=== PATIENT | female | born 2000 ===

== ENCOUNTER 2023-01-31 08:52 | Outpatient (AMB) | payer BC, SELFPAY ==
--- NOTE | 2023-01-31 08:54 | A.OFFPC_ITS ---
Vital Signs 01/31/23 08:55 Height 5 ft 4 in Weight 213 lb BMI 36.6 BP 100/72 Blood Pressure Location Lt brachial Position Sitting Pulse 105 H Pulse Source Pulse Oximeter Pulse Oximetry (%) 97 Oxygen Delivery Method Room Air Intake Visit Reasons: New Patient-ADD Retread Mold Operator Required: No Accompanied by: Self / Same As Patient Allergies venom-wasp Allergy (Severe, Verified 01/31/23 09:09) Anaphylaxis Medication List - Last Reconciled 01/31/23 by TALHA Montez albuterol sulfate 90 mcg/actuation 2 puffs inhalation Q6H PRN dextroamphetamine-amphetamine 20 mg 20 mg PO DAILY 30 days epinephrine 0.3 mg IM Q4H PRN montelukast 10 mg PO DAILY Tobacco use date assessed: 01/31/23 Dental Screening Dental Screen Date: 01/31/23 Did you have a dental visit in the last 12 months?: Yes Did you have a dental problem in the last 6 months where you did not have access to dental care?: No Was dental information given to patient?: Patient has dentist HPI HPI Comments History of Present Illness Details 22-year-old female new patient presents today to establish care. Past medical history significant for mild intermittent asthma and ADHD. Dr. Salazar was prescribing. Patient currently attending college at [employer] [facility] Patient has positive anay-7 been showing mild anxiety, offered referral to counseling patient declined at this time states she can see counselor school if needed. Patient also reports that she has a lump in her right axilla, tender times, no erythema noted patient states this has been coming corn going for years. Patient currently on doxycycline for labial abscess. No antibiotics prescribed this time. Patient also believes she is due for another vaccination but she is unsure her initially thought it was for hepatitis-B but she has had all 3 hep B vaccines. One dose of the meningococcal B given in 2019. However patient is unsure which vaccine she had done mother was the Bexsero or Trumenba. PAtient to clarify this and notify office to see if she required 1 or 2 more doses of the Men B vaccine. Previous pt Dr. Salazar. Pap smear: cervical cancer screening [facility] Medical History ADHD (attention deficit hyperactivity disorder), inattentive type Mild intermittent asthma Surgical History No pertinent past surgical history Family History Mother No problems noted. Father No problems noted. Social History Household Members: Family Both parents involved: Yes Housing: Apartment Alcohol intake: never Patient Tobacco Use Status: Never used Tobacco e-Cigarette/Vaping Use: Never Used service: No Current occupational status: employed Current occupational exposures/hazards: No Cognitive needs: No Hearing needs: No Vision needs: No Questionnaire PHQ-9 Over the last 2 weeks, how often have you been bothered by any of the following problems? 1. Little interest or pleasure in doing things: not at all 2. Feeling down, depressed, or hopeless: not at all 3. Trouble falling or staying asleep, or sleeping too much: not at all 4. Feeling tired or having little energy: not at all 5. Poor appetite or overeating: not at all 6. Feeling bad about yourself - or that you are a failure or have let yourself or your family down: not at all 7. Trouble concentrating on things, such as reading the newspaper or watching television: not at all 8. Moving or speaking so slowly that other people could have noticed. Or the op posite - being so fidgety or restless that you have been moving around a lot more than usual: not at all 9. Thoughts that you would be better off or of hurting yourself in some way: not at all Total score: 0 Depression Screening Interpretation: Negative 86274 - PHQ-9 Billing: Yes Source: Developed by Drs. Edmund Isaacs, Rhonda Melendez, Milan Gongora and colleagues, with an educational alma from [employer]. Thrive Questionnaire Date Thrive assessed: 01/31/23 I am a: Patient What is your living situation today?: I have a steady place to live Within the past 12 months, did the food you bought not last and you didn't have the money to get more?: Never true Within the past 12 months, did you worry whether your food would run out before you got money to buy more?: Never true Do you have trouble paying for medicines?: No Do you have trouble getting transportation to medical appointments?: No Do you have trouble paying your heating and electricity bill?: No Do you have trouble taking care of your child, family member or friend?: No Do you have trouble with day-to-day activities such as bathing, preparing meals, shopping, managing finances, etc.?: No Are you currently unemployed and looking for a job?: No Are you interested in more education?: No Please select the resources that you would like help with: None Currently or been in a relationship where the following occur: no concerns reported AUDIT C Alcohol Use Questionnaire (AUDIT-C) 1. How often do you have a drink containing alcohol?: Never 3. How often do you have six or more drinks on one occasion?: Never Total Score: 0 ANAY-7 AMB Questionnaire ANAY-7 Date ANAY - 7 assessed: 01/31/23 Feeling nervous, anxious, or on edge: 1 = Several days Not being able to stop or control worryin = Several days Worrying too much about different things: 1 = Several days Trouble relaxin = Not at all Being so restless that it is hard to sit still: 1 = Several days Becoming easily annoyed or irritable: 1 = Several days Feeling afraid as if something awful might happen: 0 = Not at all Total ANAY-7 score (0-4 normal; 5-9 mild; 10-14 moderate; 15-21 severe): 5 Source: Developed by Drs. Edmund Isaacs, Rhonda Melendez, Milan Gongora and colleagues, with an educational alma from [employer]. ANAY-7 Assessment Billing ANAY-7 Assessment Tool: ANAY-7 Assessment 59997 Review of Systems Const Denies chills, Denies fatigue, Denies fever(s) and Denies poor appetite Eyes Denies no additional complaints ENT Reports Normal hearing present Card Denies chest pain, Denies syncope, Denies rapid heart rate and Denies dyspnea Resp Denies cough and Denies dyspnea GI Denies change in stool character, Denies constipation, Denies diarrhea, Denies nausea and Denies vomiting Denies urinary frequency, Denies dysuria and Denies urinary urgency Skin/Breast Reports other (lumo in right armpit ) Neuro Reports Normal hearing present, Denies confusion and Denies syncope Psych Denies confusion Endo Denies fatigue Physical exam (Primary Care) Vital Signs: Last Vital Signs Pulse 105 H 01/31/23 08:55 BP 100/72 01/31/23 08:55 Pulse Ox 97 01/31/23 08:55 Oxygen Delivery Method Room Air 01/31/23 08:55 BMI result Body Mass Index 36.6 Tobacco/Smoking Status: Tobacco use Status Tobacco use date assessed 01/31/23 01/31/23 09:01 Patient Tobacco Use Status Never used Tobacco 01/31/23 09:01 e-Cigarette/Vaping Use Never Used 01/31/23 09:01 PHQ-9: PHQ-9 Score PHQ-9: Total score 0 01/31/23 09:12 Depression Screening Interpretation: Negative Thrive Assessment: Date of Thrive Assessment Date Thrive assessed 01/31/23 01/31/23 09:01 Currently or been in a relationship where the following occur: no concerns reported Const General: No confusion Orientation/consciousness: No confusion HENMT Head: Yes normocephalic and Yes atraumatic Ears: external ears normal and TM's normal bilaterally General nose exam: Normal external nose present and Normal nasal mucous membrane s and turbinates present Face and sinus: Yes normal facial exam and Yes sinuses nontender Mouth: moist mucous membranes Throat: Yes tonsils normal Eyes Conjunctivae: conjunctivae normal Sclerae: sclerae normal Pupils: Equal, round and reactive pupils present and Pupils normal by confrontation EOM: EOMs intact bilaterally Direct Ophthalmoscopy: normal light reflex Neck Neck: Yes no lymphadenopathy and Yes supple Thyroid: Thyroid normal Chest Chest palpation & inspection: normal inspection of the chest Chest/axillae images: 1. Tender mobile, firm nodule noted to right axilla, no erythema or warmth, non indurated or fluctuante Resp Effort & Inspection: normal respiratory effort Auscultation: clear to auscultation bilaterally, no crackles, no rhonchi and no wheezes Cardio Rate: regular rate Rhythm: regular rhythm Peripheral pulses: radial pulses present and dorsalis pedis present GI Inspection: Yes normal to inspection Palpation (GI): Soft to palpation, nontender and No hepatosplenomegaly present Auscultation: normoactive bowel sounds Skin General skin exam: no rashes or lesions noted Neuro General: No confusion Cranial nerves: Yes Equal, round and reactive pupils present and Yes Normal hearing present Cognition (Neuro): normal cognition Gait exam (Neuro): Normal gait present Motor exam (neuro): 5/5 motor strength present throughout Deep tendon reflexes (DTR's): Right brachioradialis reflex intensity grade: 2+, Left brachioradialis reflex intensity grade: 2+, Right patellar reflex intensity grade: 2+ and Left patellar reflex intensity grade: 2+ Extrem General: No edema Assessment and Plan Assessment & Plan (1) ADHD (attention deficit hyperactivity disorder), inattentive type: Code(s): F90.0 - Attention-deficit hyperactivity disorder, predominantly inattentive type Plan: Referral placed to the [facility] as patient is currently on Adderall and she states that it causes her to have mood problems and she is interested in discussing possibly changing her medication for ADHD. (2) Mild intermittent asthma: Code(s): J45.20 - Mild intermittent asthma, uncomplicated Plan: Patient to continue on singular daily. States she has never required using a rescue inhaler for her asthma (3) Lump of axilla: Comment: Right axilla Code(s): R22.30 - Localized swelling, mass and lump, unspecified upper limb Plan: Ultrasound ordered to further evaluate possible cyst vs abcess, patient currently on doxycycline for labial abcess, no additioanl abx prescribed. If cyst discussed referral to general surgery for removal. Plan Follow up in 1 year or sooner if needed. Orders: Orders Cholesterol Today Z13.220 - Encounter for screening for lipoid disorders Comprehensive Met. Panel Today Z13.1 - Encounter for screening for diabetes mellitus TSH reflex Free T4 Today Z13.29 - Encounter for screening for other suspected endocrine disorder US extremity nonvascular Today R22.30 - Localized swelling, mass and lump, unspecified upper limb Referrals [facility] Referral Z12.4 - Encounter for screening for malignant neoplasm of cervix Psychiatry Referral F90.0 - Attention-deficit hyperactivity disorder, predominantly inattentive type Coding Level of Care Code New Pt Prev Care [id number] Diagnoses ADHD (attention deficit hyperactivity disorder), inattentive type F90.0 Mild intermittent asthma J45.20 Lump of axilla R22.30 Additional Codes ANAY-7 Assessment Billing - ANAY-7 Assessment Tool: ANAY-7 Assessment 92166 ([id number])
[2023-01-31 08:55] VITALS: BP 100/72; PULSE 105; O2SAT 97; BMI 36.6
== END 2023-01-31 09:31 | disposition home or self-care (01) ==
PROVIDERS: PCP Pediatrics; Visit Provider Nurse Practitioner Family
DX: Z00.00 Encounter for general adult medical examination without abnormal findings (principal); F90.0 Attention-deficit hyperactivity disorder, predominantly inattentive type; J45.20 Mild intermittent asthma, uncomplicated; R22.30 Localized swelling, mass and lump, unspecified upper limb
CPT/HCPCS: 96127; 99385